=== PATIENT | female | born 1985 | race Caucasian/White ===

== ENCOUNTER 2018-02-24 18:35 | Emergency (ER) | payer MEDICAID ==
[2018-02-24 19:45] LABS: BASOPHILS 0.2 % (0-2); EOSINOPHILS 0.1 % (0-7); HEMATOCRIT 41.7 % (36.0-48.0); HEMOGLOBIN 14.2 g/dL (12-16); IMMATURE GRANULOCYTES 0.3 % (0-5); LYMPHOCYTES 6.1 % (15-50); MCH 30.3 pg (26.0-34.0); MCHC 34.1 g/dL (31.0-37.0); MCV 89.1 fL (80.0-100.0); MEAN PLATELET VOLUME 9.4 fL (7.4-10.4); NEUTROPHILS 84.3 % (40-80); PLATELET COUNT 281 10x3/uL (130-400); RBC 4.68 10x6/uL (4.00-5.40); RDW 12.5 % (11.5-14.5); WBC 19.3 10x3/uL (4.8-10.8)
[2018-02-24 19:59] LABS: ALBUMIN 4.1 g/dL (3.4-5.0); ANION GAP 13.4 mmol/L (8-16); BILIRUBIN - TOTAL 0.81 mg/dL (0.2-1.3); CALCIUM 9.7 mg/dL (8.5-10.1); CARBON DIOXIDE 26.6 mmol/L (21.0-32.0); CREATININE - SERUM 1.1 mg/dL (0.6-1.3); MAGNESIUM - SERUM 2.1 mg/dL (1.8-2.4); PROTEIN - SERUM 8.4 g/dL (6.4-8.2)
== END 2018-02-24 21:57 | disposition home or self-care (01) ==
LOC: D.ER 18:35
PROVIDERS: Family Medicine
DX: F15.10 Other stimulant abuse, uncomplicated (principal); F15.14 Other stimulant abuse with stimulant-induced mood disorder; E87.6 Hypokalemia; F17.200 Nicotine dependence, unspecified, uncomplicated